=== PATIENT | male | born 1955 | race Caucasian/White ===

== ENCOUNTER 2016-06-27 08:39 | Inpatient (IN) | payer BC, MEDICARE ==
[~2016-06-27] VITALS: Ht 177.8 cm; Wt 87.4 kg
--- NOTE | ~2016-06-27 | HEMODYNAMI ---
PATIENT:QUINN ZHANG MEDICAL RECORD: [id number] : 51 [facility] [id number] [id number] ADMISSION DATE: 06/27/16 Generatedon:07/01/201610:29 Patient name: QUINN ZHANG Patient #: [id number] SSN: : 1955 Date of study: 07/01/2016 Page: Of Hemodynamic Procedure Report Patient Data Patient Demographics Procedure consent was obtained First Name: QUINN Gender: Male Last Name: VICENTE : 1955 Middle Initial: R Age: 60 year(s) Patient #: [id number] Race: Additional ID: [id number] Contact details [address]: [address] [place] [address] State: [place] City: [place] Zip code: [address] Past Medical History Allergies Allergen Reaction Date Comments Reported Statins 06/07/2016 Statins 07/01/2016 Admission Admission Data Admission Date: 06/27/2016 Admission Time: 11:15 Room #: [facility]7 Height (in.): 70 BSA: 2.06 (m2) Height (cm.): 177.8 BMI: 27.98 (kg/m2) Weight (lbs.): 195 Weight (kg.): 88.45 Procedure Procedure Types Cath Procedure Peripheral Cath Diagnostic Procedure Cath Peripheral Liver Hepatic Venagram Procedure Description Procedure Date Procedure Date: 07/01/2016 Procedure Start Time: 10:06 Procedure Staff Name Function Mainor Medina MD Performing Physician Israel Oliveros RT Scrub Ashley Singer RN Nurse Shiloh Turner RT First Calender Worker Shiloh Turner RT Monitor Procedure Data Cath Procedure Fluoroscopy Diagnostic fluoroscopy Total fluoroscopy Time: 4.8 time: 4.8 min min Diagnostic fluoroscopy Total fluoroscopy dose: dose: 354.4 mGy 354.4 mGy Contrast Material Contrast Material Type Amount (ml) Isovue 300 45 Diagnostic catheters Device Type Used For End Catheter Placement Merit Impress KA2 5Fr 65CM catheter Merit ULTRA BOLUS FLUSH 5Fr 65CM catheter Procedure Medications Medication Administration Route Dosage Oxygen NC 3 l/min Lidocaine 1% added to field 20 Heparin Flush Bag added to field 3 bags (1000units/500ml NS) Benadryl I.V. 50 mg Versed I.V. 1 mg Fentanyl I.V. 50 mcg Versed I.V. 0.5 mg Fentanyl I.V. 25 mcg Hemodynamics Rest BSA: 2.06 (m2) O2 Consumption: Estimated: 247.32 (ml/min) O2 Consumption indexed : Estimated:120.06 (ml/min/m) Heart Rate: 78 (bpm) Pressure Samples Time Site Value (mmHg) Purpose Heart Use Rate(bpm) 10:15 RA 8/7(5) Snapshot 80 10:15 RA 9/7(5) Snapshot 90 10:20 Portal 17/(15) Snapshot 80 Snapshots Pre Cath Intra NCS Post Cath Vital Signs Time Heart Resp SPO2 NIBP (mmHg) Rhythm Pain Sedation Rate (ipm) (%) Status Level (bpm) 9:38:50 75 29 96 117/75(100) NSR 0 (11) 10(A) , No pain 9:43:00 75 19 97 119/68(98) NSR 0 (11) 10(A) , No pain 9:47:10 76 19 97 129/73(104) NSR 0 (11) 10(A) , No pain 9:51:22 76 25 97 126/77(100) NSR 0 (11) 10(A) , No pain 9:55:32 75 17 99 133/77(110) NSR 0 (11) 10(A) , No pain 9:59:46 75 18 99 125/74(97) NSR 0 (11) 10(A) , No pain 10:03:58 75 18 99 113/69(92) NSR 0 (11) 10(A) , No pain 10:08:06 74 17 99 112/71(85) NSR 0 (11) 9(A) , No pain 10:12:11 80 20 100 107/73(91) NSR 0 (11) 9(A) , No pain 10:16:17 80 20 100 118/70(97) NSR 0 (11) 9(A) , No pain 10:20:29 80 19 100 111/67(88) NSR 0 (11) 9(A) , No pain 10:24:35 80 19 100 115/71(88) NSR 0 (11) 9(A) , No pain 10:28:45 80 12 100 118/69(88) NSR 0 (11) 9(A) , No pain Medications Time Medication Route Dose Verified Delivered Reason Notes Eff ectiveness by by 9:39:16 Oxygen NC 3 Ashley Ashley used for l/min Lucrecia Lucrecia civil rights attorney RN 9:39:34 Lidocaine 1% added 20ml Mainor Hayward for local to vial MD Adam Medina MD anesthetic field 9:39:50 Heparin Flush added 3 Ashley Ashley used for Bag to bags Lucrecia Lucrecia procedure (1000units/500ml field RN RN NS) 10:00:27 Benadryl I.V. 50 mg Ashley Ashley Per Lucrecia Lucrecia physician RN RN 10:06:30 Versed I.V. 1 mg Ashley Ashley for Lucrecia Lucrecia sedation RN RN 10:06:37 Fentanyl I.V. 50 Ashley Ashley for mcg Lucrecia Lucrecia sedation RN RN 10:14:21 Versed I.V. 0.5 Ashley Ashley for mg Lucrecia Lucrecia sedation RN RN 10:14:26 Fentanyl I.V. 25 Ashley Ashley for mcg Lucrecia Lucrecia sedation RN university services program associate Log Time Note 9:12:48 Patient Weight : 195 kg 9:12:52 Patient Height : 70 cm 9:17:38 Use device set IR Diagnostic 9:17:49 Sterile Angiographic Pack opened to sterile field. 9:17:52 Bag Decanter opened to sterile field. 9:17:53 Acist Manifold opened to sterile field. 9:17:54 Acist Hand Control opened to sterile field. 9:17:56 Acist Syringe opened to sterile field. 9:27:01 Time tracking: Regular hours 9:27:16 Plan of Care:Hemodynamics will remain stable., Cardiac rhythm will remain stable., Comfort level will be maintained., Respiratory function will remain adequate., Patient/ family verbilizes understanding of procedure., Procedure tolerated without complication., Recovers from procedure without complications.. 9:27:24 Patient received from Med II to IR Alert and oriented. Tansferred to table in Supine position. 9:27:26 Correct patient and procedure confirmed by team. 9::28 Signed procedure consent form obtained from patient. 9:27:32 - 9:27:39 H&P Date Dictated: 07/01/2016 Within 30 days and on chart.. 9::41 Pre-procedure instructions explained to patient. ::41 Pre-op teaching completed and patient verbalized understanding. 9:27:43 Family in waiting room. 9::45 Patient NPO since Midnight. 9:28:05 Patient allergic to Statins 9:28:12 Is the patient allergic to Iodine/contrast media? No. 9:28:14 Is patient on blood thinner?Yes 9:28:25 The patient was administered the following blood thiners within the las t 24 hours: ACCPlavix, Coumadin 9::41 Patient diabetic? Yes. 9:28:44 If diabetic: On Metformin? Yes 9:28:49 - 9:28:51 ----Pre-sedation anethsthesia assessment.---- 9::54 Previous problem with sedation/anesthesia? No ? :58 Snore? Yes 9:29:00 Sleep apnea? No 9:29:03 Deviated septum? No 9:29:05 Opens mouth fully? Yes 9:29:27 Airway obstruction? No ? 9:29:31 Airway obstruction? Yes chf 9:29:59 Dentures? Yes not in :30:31 IV patent on arrival in right hand with 0.9% NaCl at [facility]. 9:30:58 Right neck area was prepped with chlora-prep and draped in sterile fashion 9:31:00 Alarms reviewed by Gemma Claros 9:31:01 Sharps counted by scrub and verified by Benedict 9:31:01 - 9:33:17 Micropuncture VSI 4FR kit opened to sterile field. 9:33:39 Cook ADAMASON 145cm guide wire opened to sterile field. 9:37:43 - 9:37:47 ECG and BP/O2 sat monitors applied to patient. 9:37:49 Vital chart was started 9:37:52 Baseline sample Acquired. 9:37:54 Full Disclosure recording started 9:37:55 - 9:39:16 Oxygen 3 l/min NC was given by Ashley Singer RN; used for procedure; 9:39:34 Lidocaine 1% 20ml vial added to field was given by Mainor Medina MD; for local anesthetic; 9:39:50 Heparin Flush Bag (1000units/500ml NS) 3 bags added to field was given by Ashley Singer RN; used for procedure; 9:57:12 TUBING, CONTRAST INJCTN HI PRES opened to sterile field. 9:57:13 TUBING, CONTRAST INJCTN HI PRES opened to sterile field. 9:58:15 St Raimundo 5FR Sheath opened to sterile field. 10:00:27 Benadryl 50 mg I.V. was given by Ashley Singer RN; Per physician; 10:02:41 Physician arrived 10:06:00 --------ALL STOP TIME OUT------ 10:06:00 Final Timeout: patient, procedure, and site verified with staff and physician. All members of the team are in agreement. 10:06:09 Physical assessment completed. ASA score P 3 - A patient with severe systemic disease as per Mainor Medina MD. 10:06:16 Sedation plan: IV Moderate Sedation Versed, Fentanyl 10:06:24 Procedure started. 10:06:30 Versed 1 mg I.V. was given by Ashley Sniger RN; for sedation; 10:06:31 Local anesthetic to right IJ vein with Lidocaine 1% by Mainor Medina MD.INITIAL ACCESS ONLY 10:06:37 Fentanyl 50 mcg I.V. was given by Ashley Singer RN; for sedation; 10:08:40 A ConfortVisuel Impress KA2 5Fr 65CM catheter was advanced over the wire and used for . 10:10:10 Terumo TORQUE DEVICE PLASTIC .038 opened to sterile field. 10:11:25 Terumo .038 180cm ANGLED glide wire opened to sterile field. 10:14:21 Versed 0.5 mg I.V. was given by Ashley Singer RN; for sedation; 10:14:26 Fentanyl 25 mcg I.V. was given by Ashley Singer RN; for sedation; 10:14:56 Zero performed for pressure channel P1 10:15:06 Zero performed for pressure channel P1 10:15:17 Zero performed for pressure channel P1 10:17:22 A ConfortVisuel ULTRA BOLUS FLUSH 5Fr 65CM catheter was advanced over the wire and used for . 10:19:42 Zero performed for pressure channel P1 10:22:53 Venogram performed 10:23:02 Procedure ended.(Physican Out) 10:24:04 Fluoroscopy time 04.80 minutes. 10:24:57 Fluoroscopy dose: 354.4 mGy 10:24:57 Flurop Dose total: 354.4 10:25:52 Contrast amount:Isovue 300 45ml. 10:25:54 Sharps counted by scrub and verified by R.N. 10:25:58 Procedure and supply charges have been captured, reviewed, submitted an d are correct. 10:29:24 Vital chart was stopped Device Usage Item Name Manufacture Quantity Catalog Number Hospital Part Current Min imal Lot# / Charge Number Stock Stock Serial# Code Sterile [place] 1 [id number] 5 Angiographic Health Pack Bag Decanter Microtek 1 2001S [id number] 28930 924530 5 Medical Inc. Acist Acist 1 66092 353697 346335 289918 5 Manifold Medical Systems Inc Acist Hand Acist 1 73560 391541 556068 128188 5 Control Medical Systems Inc Acist Syringe Acist 1 95777 310840 534052 366665 20 Medical Systems Inc Micropuncture VSI VASCULAR 1 7266V 865586 250523 5 VSI 4FR kit SOLUTIONS Cook [facility] Medical 1 [id number] 604431 432991 5 145cm guide wire TUBING, Merit 2 [id number] 301557 599169 141973 5 CONTRAST Medical INJ[address] PRES [address] Raimundo 1 [id number] 982462 513867 5 Sheath Merit Impress Merit 1 [id number] 245233 610666 5 KA2 5Fr 65CM Medical catheter Terumo TORQUE [place] 1 TD01 729842 740874 608126 5 DEVICE Scientific PLASTIC .038 Terumo .038 Terumo 1 [id number] 482561 191533 5 180cm ANGLED glide wire Merit ULTRA Merit 1 [id number] 088670 248703 5 BOLUS FLUSH Medical 5Fr 65CM catheter Signature Audit [place] Stage Time Signature Unsigned Intra-Procedure 07/01/2016 Shiloh Turner 10:29:10 AM RT(R) Signatures Monitor : Shiloh Turner RT Signature : Date : Time : [facility] [address], [place] [address]
[~2016-06-27 08:39] MED LIST: CHRONULAC30 ML PO; COLACE100 MG PO; COREG6.25 MG PO; COUMADIN1 MG PO; GLUCOPHAGE500 MG PO; HUMALOG 30100 UNITS/ SC; IPRAT-ALBUT 0.5-3 ML UPD; ISORDIL40 MG PO; LANOXIN250 MCG PO; LANTUS INSULIN10 ML SC; LASIX40 MG PO; LEVAQUIN500 MG PO; LISINOPRIL10 MG PO; LYRICA75 MG PO; PLAVIX75 MG PO; PREDNISONE20 MG PO; PREVACID30 MG PO; XIFAXAN550 MG PO; ZOLOFT100 MG PO; ZYLOPRIM300 MG PO
[2016-06-27 09:21] LABS: BASOPHILS 0.9 % (0.0-2.0); EOSINOPHILS 3.3 % (0-7); HEMATOCRIT 46.8 % (42.0-54.0); HEMOGLOBIN 15.1 g/dL (13.5-17.5); IMMATURE GRANULOCYTES 0.1 % (0-5); LYMPHOCYTES 16.9 % (15-50); MCHC 32.3 g/dL (31.0-37.0); MCV 86.8 fL (80.0-100.0); MEAN PLATELET VOLUME 11.8 fL (7.4-10.4); MONOCYTES 6.4 % (2-11); NEUTROPHILS 72.4 % (40-80); RBC 5.39 10x6/uL (4.20-6.10); RDW 20.6 % (11.5-14.5)
[2016-06-27 09:22] LABS: PLATELET COUNT 105 10x3/uL (130-400)
[2016-06-27 09:37] LABS: ALBUMIN 3.2 g/dL (3.4-5.0); ALKALINE PHOSPHATASE 272 U/L (46-116); ALT (SGPT) 51 U/L (10-68); CALC OSMOLALITY 284 mosm/kg (275-300); CALCIUM 8.8 mg/dL (8.5-10.1); CHLORIDE - SERUM 108 mmol/L (98-107); CREATININE - SERUM 0.7 mg/dL (0.6-1.3); GLUCOSE 106 mg/dL (74-106); POTASSIUM - SERUM 3.7 mmol/L (3.5-5.1); PROTEIN - SERUM 6.4 g/dL (6.4-8.2); SODIUM 143 mmol/L (136-145); UREA NITROGEN 13 mg/dL (7-18); eGFR NON AFRICAN AMERICAN > 90 mL/min (90-120)
[2016-06-27 09:38] LABS: APTT 36.9 SECONDS (22.8-39.4); INR 2.06 (0.85-1.17); PROTIME 23.2 SECONDS (11.6-15.0)
[2016-06-27 09:53] LABS: CREATINE KINASE 50 UL (21-232); DIGOXIN 0.63 ng/mL (0.90-2.00); PRO BNP 1180 pg/mL (0-125)
[2016-06-27 10:00] LABS: TROPONIN-I 0.127 ng/mL (0.000-0.060)
--- NOTE | 2016-06-27 11:50 | NUR ---
ARRIVE TO ROOM VIA STRETCHER FROM ER ACCOMPANIED BY FAMILY AND HOSPITAL STAFF. ALERT AND ORIENTED X4. TRANSFER FROM STRETCHER TO BED MINIMAL ASSIST. DENIES SOB OR PAIN. RT HAND IV SL. SLOW TO RESPOND WHEN ANSWERING QUESTIONS. AMMONIA ELEVATED 138. LACTULOSE ORDERED. BED LOCKED AND LOW. CALL LIGHT IN REACH. CONTINUE PLAN OF CARE AND ADMISSION PROCESS.
[2016-06-27] MEDS ORDERED: NOVOLOG100 U/M1 (11:55)
[2016-06-27 13:36] VITALS: BP 129/72; BMI 28.1
[2016-06-27 13:44] LABS: CKMB 3.3 U/L (0.0-3.6); CREATINE KINASE 36 UL (21-232)
[2016-06-27 13:48] LABS: TROPONIN-I 0.135 ng/mL (0.000-0.060)
--- NOTE | 2016-06-27 14:33 | NUR ---
INITIATE DOBUTAMINE DRIP 5MCG/KG/MIN. SINUS RHYTHM 75bpm PVCs WITH PACED BEATS ON TELEMETRY. LETHARGIC. EASY TO AROUSE. FAMILY AT BEDSIDE. DENIES PAIN OR SOB. BED LOCKED AND LOW. CALL LIGHT IN REACH. TWO SIDERAILS UP. NO SCDs. TAKES COUMADIN.
--- NOTE | 2016-06-27 15:42 | NUR ---
ALERT AND ORIENTED X4. SITTING UP IN BED. NOSE BLEEDING. INITIATE HUMIDIFIED OXYGEN THERAPY. PRESSURE HELD AT BRIDGE OF NOSE FOR 2MINS. BLEEDING STOPPED. AFRAN NASAL SPRAY ORDERED. DENIES PAIN. DOBUTAMINE DRIP CONTINUED ORDERED. FAMILY AT BEDSIDE. SINUS RHYTHM 89bpm WITH PVCs ON TELEMETRY. CONTINUE PLAN OF CARE. BED LOCKED AND LOW. CALL LIGHT IN REACH. TWO SIDERAILS UP.
[2016-06-27 16:00] VITALS: BP 150/79
[2016-06-27 19:00] VITALS: BP 163/95
[2016-06-27 19:05] LABS: CKMB 2.5 U/L (0.0-3.6); CREATINE KINASE 34 UL (21-232)
[2016-06-27 19:06] LABS: TROPONIN-I 0.113 ng/mL (0.000-0.060)
--- NOTE | 2016-06-27 19:32 | NUR ---
RESUMED CARE OF PT, SLEEPING, IV-R.HAND*DOBUTAMINE-13.4,WKTMJBKH-22-YK-PACEMAKER, CALL LIGHT IN REACH, BED IS LOW, SRX2
--- NOTE | 2016-06-27 23:50 | NUR ---
EKG COMPLETE, PT DENIES ANY NEEDS, CALL LIGHT IN REACH
[2016-06-28] VITALS: BP 159/85
[2016-06-28 00:51] LABS: CKMB 2.1 U/L (0.0-3.6); CREATINE KINASE 31 UL (21-232)
--- NOTE | 2016-06-28 02:37 | NUR ---
LYING IN BED WITH EYES CLOSED, CALL LIGHT IN REACH. WILL CONTINUE WITH PLAN OF CARE.
[2016-06-28 04:00] VITALS: BP 157/80
[2016-06-28 06:06] LABS: BASOPHILS 0.6 % (0.0-2.0); EOSINOPHILS 3.3 % (0-7); HEMATOCRIT 43.8 % (42.0-54.0); IMMATURE GRANULOCYTES 0.2 % (0-5); LYMPHOCYTES 22.5 % (15-50); MCH 27.5 pg (26.0-34.0); MCV 85.9 fL (80.0-100.0); MEAN PLATELET VOLUME 10.9 fL (7.4-10.4); NEUTROPHILS 66.4 % (40-80); RDW 20.8 % (11.5-14.5)
[2016-06-28 06:07] LABS: INR 2.07 (0.85-1.17); PROTIME 23.4 SECONDS (11.6-15.0)
[2016-06-28 06:19] LABS: ALBUMIN 2.8 g/dL (3.4-5.0); ALKALINE PHOSPHATASE 237 U/L (46-116); ALT (SGPT) 46 U/L (10-68); BILIRUBIN - TOTAL 1.47 mg/dL (0.2-1.3); CALC OSMOLALITY 292 mosm/kg (275-300); CALCIUM 9.1 mg/dL (8.5-10.1); CARBON DIOXIDE 28.1 mmol/L (21.0-32.0); CHLORIDE - SERUM 108 mmol/L (98-107); GLUCOSE 150 mg/dL (74-106); PLATELET COUNT 81 10x3/uL (130-400); POTASSIUM - SERUM 3.3 mmol/L (3.5-5.1); PROTEIN - SERUM 6.1 g/dL (6.4-8.2); SODIUM 145 mmol/L (136-145); UREA NITROGEN 14 mg/dL (7-18); WBC 5.1 10x3/uL (4.8-10.8)
[2016-06-28 06:25] LABS: CREATININE - SERUM 0.9 mg/dL (0.6-1.3); eGFR NON AFRICAN AMERICAN > 90 mL/min (90-120)
[2016-06-28 07:21] LABS: PLATELET ESTIMATE DECREASED
[2016-06-28 08:00] VITALS: BP 129/67
[2016-06-28 09:05] VITALS: BP 162/76
--- NOTE | 2016-06-28 10:47 | NUR ---
SLEEPING COMFORTABLY IN BED. DAUGHTER AT BEDSIDE. DAUGHTER BROUGHT COPY OF LIVING WILL TO PUT ON CHART. SINUS RHYTHM 76bpm WITH PVCs ON TELEMETRY. NPO FOR TIP THIS AFTERNOON. CONITUE PLAN OF CARE. BED LOCKED AND LOW. CALL LIGHT IN REACH. TWO SIDERAILS UP. TAKES COUMADIN.
[2016-06-28 11:59] VITALS: BP 123/62; BP 96/62
[2016-06-28 13:38] VITALS: Ht 177.8 cm; Wt 87.4 kg
[2016-06-28 15:46] VITALS: BP 125/68
--- NOTE | 2016-06-28 19:21 | NUR ---
RESUMED CARE OF PT, IV-R.QUGA-BMOURBWUC-35.4, TELEMTRY-78, DENIES ANY NEEDS, CALL LIGHT IN REACH, WILL CONTINUE TO MONITOR
[2016-06-29] VITALS: BP 129/58
--- NOTE | 2016-06-29 02:21 | NUR ---
PT LAYING IN BED NO DISTRESS OBSERVED CALL LIGHT IN REACH SRX2 TELEMETRY READING 87 SR WITH PVC RESPERATIONS EVEN AND UNLABORED WILL MONITOR
[2016-06-29 04:00] VITALS: BP 176/71
--- NOTE | 2016-06-29 05:43 | NUR ---
BLOODSUGAR 78, NO COVERAGE NEEDED, DID GIVE ORANGE JUICE
[2016-06-29 06:31] LABS: BASOPHILS 0.6 % (0.0-2.0); HEMATOCRIT 42.5 % (42.0-54.0); HEMOGLOBIN 13.7 g/dL (13.5-17.5); LYMPHOCYTES 21.1 % (15-50); MCH 27.7 pg (26.0-34.0); MCHC 32.2 g/dL (31.0-37.0); MEAN PLATELET VOLUME 10.4 fL (7.4-10.4); MONOCYTES 8.5 % (2-11); NEUTROPHILS 65.8 % (40-80); PLATELET COUNT 82 10x3/uL (130-400); RBC 4.94 10x6/uL (4.20-6.10); RDW 20.5 % (11.5-14.5); WBC 4.7 10x3/uL (4.8-10.8)
[2016-06-29 06:52] LABS: INR 2.3 (0.85-1.17); PROTIME 25.4 SECONDS (11.6-15.0)
[2016-06-29 07:00] LABS: ALBUMIN 2.8 g/dL (3.4-5.0); ALKALINE PHOSPHATASE 208 U/L (46-116); ALT (SGPT) 46 U/L (10-68); CALC OSMOLALITY 283 mosm/kg (275-300); CALCIUM 8.6 mg/dL (8.5-10.1); CARBON DIOXIDE 26.6 mmol/L (21.0-32.0); CHLORIDE - SERUM 107 mmol/L (98-107); CREATININE - SERUM 0.9 mg/dL (0.6-1.3); POTASSIUM - SERUM 3.4 mmol/L (3.5-5.1); PROTEIN - SERUM 6.1 g/dL (6.4-8.2); SODIUM 142 mmol/L (136-145); UREA NITROGEN 14 mg/dL (7-18); eGFR NON AFRICAN AMERICAN > 90 mL/min (90-120)
[2016-06-29 07:01] LABS: GLUCOSE 94 mg/dL (74-106)
[2016-06-29 08:00] VITALS: BP 145/71
--- NOTE | 2016-06-29 10:43 | NUR ---
GONE FOR CT BY W/C.
[2016-06-29 12:00] VITALS: BP 133/71
[2016-06-29 16:00] VITALS: BP 154/84
--- NOTE | 2016-06-29 19:03 | NUR ---
SITTING UP IN BED, AAOX3, SKIN WARM AND DRY, RESP UNLABORED, IV PATENT TO RIGHT HAND, MOOD PLEASANT, NO DISTRESS NOTED
[2016-06-30] VITALS: BP 160/70
[2016-06-30 04:00] VITALS: BP 152/68
--- NOTE | 2016-06-30 06:08 | NUR ---
RESTING QUIETLY IN BED, NO DISTRESS NOTED
[2016-06-30 06:52] LABS: INR 2.42 (0.85-1.17); PROTIME 26.4 SECONDS (11.6-15.0)
[2016-06-30 07:10] LABS: ALBUMIN 2.8 g/dL (3.4-5.0); ALKALINE PHOSPHATASE 260 U/L (46-116); ALT (SGPT) 48 U/L (10-68); CALC OSMOLALITY 289 mosm/kg (275-300); CALCIUM 8.6 mg/dL (8.5-10.1); CHLORIDE - SERUM 105 mmol/L (98-107); CREATININE - SERUM 0.9 mg/dL (0.6-1.3); POTASSIUM - SERUM 3.3 mmol/L (3.5-5.1); PROTEIN - SERUM 6.2 g/dL (6.4-8.2); SODIUM 143 mmol/L (136-145); UREA NITROGEN 16 mg/dL (7-18); eGFR NON AFRICAN AMERICAN > 90 mL/min (90-120)
[2016-06-30 07:11] LABS: GLUCOSE 179 mg/dL (74-106)
[2016-06-30 07:15] LABS: BASOPHILS 0.6 % (0.0-2.0); HEMATOCRIT 42.3 % (42.0-54.0); HEMOGLOBIN 13.6 g/dL (13.5-17.5); IMMATURE GRANULOCYTES 0.2 % (0-5); MCH 27.8 pg (26.0-34.0); MCHC 32.2 g/dL (31.0-37.0); MCV 86.3 fL (80.0-100.0); MEAN PLATELET VOLUME 11.1 fL (7.4-10.4); MONOCYTES 9.1 % (2-11); NEUTROPHILS 68.1 % (40-80); PLATELET COUNT 96 10x3/uL (130-400); RDW 20.5 % (11.5-14.5); WBC 4.7 10x3/uL (4.8-10.8)
[2016-06-30 08:02] VITALS: BP 140/67
--- NOTE | 2016-06-30 09:44 | NUR ---
TELEMETRY SR. IV PATENT. CALL LIGHT IN REACH. WILL CONT. PLAN OF CARE.
[2016-06-30 11:42] VITALS: BP 137/73
[2016-06-30 16:00] VITALS: BP 137/63
--- NOTE | 2016-06-30 19:03 | NUR ---
SITTING UP IN BED, AAOX3, SKIN WARM AND DRY, RESP UNLABORED, IV PATENT TO RIGHT HAND, MOOD PLEASANT, NO DISTRESS NOTED
[2016-06-30 20:00] VITALS: BP 137/76
[2016-07-01] VITALS (13 sets, daily range): BP systolic 114–147; BP diastolic 54–82
--- NOTE | 2016-07-01 04:28 | NUR ---
SKI LIFT MECHANIC AT BEDSIDE TO OBTAIN VITALS, CALL LIGHT IN REACH. WILL CONTINUE WITH PLAN OF CARE.
[2016-07-01 06:03] LABS: BASOPHILS 0.7 % (0.0-2.0); EOSINOPHILS 5.2 % (0-7); HEMATOCRIT 47.6 % (42.0-54.0); HEMOGLOBIN 15.3 g/dL (13.5-17.5); IMMATURE GRANULOCYTES 0.2 % (0-5); LYMPHOCYTES 20.6 % (15-50); MCH 27.7 pg (26.0-34.0); MCHC 32.1 g/dL (31.0-37.0); MCV 86.2 fL (80.0-100.0); MEAN PLATELET VOLUME 10.7 fL (7.4-10.4); MONOCYTES 7.9 % (2-11); NEUTROPHILS 65.4 % (40-80); PLATELET COUNT 111 10x3/uL (130-400); RBC 5.52 10x6/uL (4.20-6.10); RDW 20.4 % (11.5-14.5)
[2016-07-01 06:20] LABS: INR 2.1 (0.85-1.17); PROTIME 23.6 SECONDS (11.6-15.0)
[2016-07-01 06:41] LABS: ALKALINE PHOSPHATASE 296 U/L (46-116); ALT (SGPT) 51 U/L (10-68); BILIRUBIN - TOTAL 1.17 mg/dL (0.2-1.3); CALCIUM 9.1 mg/dL (8.5-10.1); CARBON DIOXIDE 25.8 mmol/L (21.0-32.0); CHLORIDE - SERUM 107 mmol/L (98-107); CREATININE - SERUM 0.9 mg/dL (0.6-1.3); POTASSIUM - SERUM 3.7 mmol/L (3.5-5.1); PROTEIN - SERUM 6.8 g/dL (6.4-8.2); SODIUM 143 mmol/L (136-145); UREA NITROGEN 12 mg/dL (7-18); eGFR NON AFRICAN AMERICAN > 90 mL/min (90-120)
[2016-07-01 06:42] LABS: CALC OSMOLALITY 284 mosm/kg (275-300); GLUCOSE 107 mg/dL (74-106)
--- NOTE | 2016-07-01 07:10 | NUR ---
PT SITTING UP IN BED WITH TWO FAMILY MEMBERS AT BEDSIDE. DENIES NEEDS. WILL COTNINUE TO MONITOR.
[2016-07-01 07:25] LABS: MAGNESIUM - SERUM 1.8 mg/dL (1.8-2.4); PHOSPHOROUS 3.7 mg/dL (2.5-4.9)
--- NOTE | 2016-07-01 09:11 | NUR ---
PREOPED PT FOR VENOGRAM EKG DONE AND ON CHART. CONSENTS SIGNED ON CHART. JACQUELIN FROM IR HERE AND ASKED HIM IF OK TO GIVE BLOOD THINNERS. HE SAID OK FOR XIFAXIN BUT HOLD PLAVIX UNTIL AFTER PROCEDURE. HOLDING UNTIL THEN.
--- NOTE | 2016-07-01 10:26 | NUR ---
PT STILL IN PROCEDURE.
--- NOTE | 2016-07-01 11:01 | NUR ---
Nutrition follow-up: NPO at this time for procedure PO intake of regular diet has been 100% of meals labs reviewed +BM Wt: 194# RDN following.
--- NOTE | 2016-07-01 11:08 | NUR ---
PT BACK FROM PROCEDURE. PT ALERT STILL LETHARGIC VS WNL. GIVEN MEDS. BS WNL. R NECK DRESSING SATURATED. CHANGED DRESSING AND DATED. FAMILY AT [facility].
--- NOTE | 2016-07-01 11:55 | NUR ---
Patient Name: QUINN ZHANG Admission Status: ER Accout number: [id number] Admission Date: 06-27-2016 : 1955 Admission Diagnosis:UNSPECIFIED CIRRHOSIS OF LIVER Attending: IMAN Current LOS: 4 Anticipated DC Date: Planned Disposition: Home Primary Insurance: [employer] [facility] Discharge Planning Comments: CM met with patient and patient's spouse at bedside to discuss discharge planning/needs. The patient did not have HH services or DME supplies at time of this admission. Patient's spouse states he would benefit from a walker-patient is agreeable. The patient's spouse stated she would like HH services initially at discharge but patient denied HH. The patient's spouse stated the patient was admitted on 06/04/16 for an MN and was discharged home 3 weeks ago. She states the patient will not use his nebulizer at home as he states "It makes him feel sick". Spouse states she sets up the patient's medications but otherwise he is independent of ADL's. Both patient and spouse agree their home environment is safe to return to. The patient's spouse "Bri Zhang" ([phone]) will be his transportation home at discharge and his primary caregiver once discharged. CM will continue to follow and assist with discharge planning/needs. Chucking Machine Operator: Juliette Thakur RN/CM PCP Dr Murphy 0 * Pharmacy [facility] 0 * Preadmission Environment Home with Family 0 * ADLs Partial Dependent 0 * Partial ADLs (Assistance needed) Medication Management 0 * Equipment None 0 Grand Total: 0
[2016-07-01] MEDS ORDERED: CHRONULAC30 ML PO (12:08)
[2016-07-01] MEDS ORDERED: K-TAB10 MEQ PO (12:09)
[2016-07-01] MEDS ORDERED: AFRIN NASAL SPR15 ML NASAL (12:09)
[2016-07-01] MEDS ORDERED: NOVOLOG100 U/M1 SC (12:15)
[2016-07-01] MEDS ORDERED: ALDACTONE25 MG PO (12:15)
--- NOTE | 2016-07-01 12:44 | NUR ---
CHANGED PT DRESSING ON R NECK AGAIN. PT STILL BLEEDING, NOT SLOWING DOWN. REDRESSED. JACQUELIN FROM IR HERE HES NOW HOLDIND PRESSURE.
--- NOTE | 2016-07-01 13:48 | NUR ---
JACQUELIN HELD PRESSURE ON PT WOUND FOR ABOUT AN HOUR AND PT STILL STEADILY BLEEDING. CHANGED DRESSING AGAIN. HE TALKED TO THE DR AND HE SAID TO KEEP HOB ELEVATED MUCH POSSIBLE. PT SLEEPING NOW. WILL CONTINUE TO MONITOR.
--- NOTE | 2016-07-01 14:10 | NUR ---
PT HAS ALREADY SEEPED THROUGH DRESSING AGAIN. CALLED JACQUELIN IN IR. HE IS HERE AGAIN AND HOLDING MORE PRESSURE. IS IN A CASE AND WILL BE HERE MAYELIN.
--- NOTE | 2016-07-01 14:56 | NUR ---
Patient Name: QUINN ZHANG Encounter No: [id number] : 1955 Primary Insurance: [employer] [place] [facility] Anticipated DC Date: Planned Disposition: Home WITH HOME HEALTH External Planned Provider: : DCP follow-up note: CECILIO KELLY RECEIVED ORDERS FOR HOME HEALTH AND WALKER. AKBAR MET WITH PT IN ROOM, DISCUSSED DISCHARGE NEEDS. PT CHOSE [facility] FOR HOME HEALTH AND HAD NO PREFERENCE ON DME PROVIDER AND WOULD LIKE IN NETWORK PROVIDER FOR INSURANCE. CECILIO KELLY SPOKE TO ALL AT [phone], PROVIDED REFERRAL INFORMATION FOR HOME HEALTH ARRANGEMENT TO BEGIN TOMORROW. CM FAXED REFERRAL AND DISCHARGE INFORMATION TO [facility] AT [phone]. CM CALLED [facility], , SPOKE TO CARRIE WHO REPORTS BEING IN NETWORK FOR PT'S INSURANCE. AKBAR FAXED ORDER AND FACE SHEET TO [facility], , FOR HOSPITAL DELIVERY OF WALKER TO PT'S ROOM FOR DISCHARGE HOME. PT AND SPOUSE NOTIFIED. NO FURHTER DISCHARGE NEEDS. George Patrick, CASE MANAGEMENT
--- NOTE | 2016-07-01 17:04 | NUR ---
PT HAS NO S/S BLEEDING. SITTING UP IN BED WAITING ON DINNER TRAY. WENT IN ROOM TO GET DC PAPERWORK SIGNED. PT AND PT FAMILY STATING THAT JACQUELIN AND DR CHURCH TOLD THEM THAT PT COULD STAY UNTIL TOMORROW. NO ONE INFORMED ME OF THIS... PAGED DORITA THORNTON POPCORN CANDY MAKER TO MAKE SURE THAT THIS IS OK TO HOLD THE DC UNTIL THE AM TO MAKE SURE THE BLEEDING STOPS.
--- NOTE | 2016-07-01 17:07 | NUR ---
DORITA THORNTON CALLED AND SHE SAID TO HOLD DISCHARGE ON PT.
--- NOTE | 2016-07-01 17:45 | NUR ---
PT BLEEDING AGAIN. HOLDING PRESSURE AGAIN
--- NOTE | 2016-07-01 17:59 | NUR ---
PRESSURE DRESSING APPLIED AGAIN. PT NOT BLEEDING THROUGH DRESSING AT THIS TIME. FAMILY AT BEDSIDE. WILL CONTINUE TO MONITOR.
--- NOTE | 2016-07-01 18:18 | NUR ---
PT BLEEDING AGAIN. CHANGED PRESSURE DRESSING AGAIN. APPLYING DIRECT PRESSURE. CALLED DORITA THORNTON SHE SAID CALL IR. DR HAZEL NEEDLE POLISHER. HE HAS BEEN PAGED. PT IS NOT CLOTTING. PROCEDURE WAS FINISHED AT 1100 AND HE IS STILL BLEEDING.
--- NOTE | 2016-07-01 19:19 | NUR ---
GONE TO IR BY BED FOR SUTURE.
--- NOTE | 2016-07-01 19:34 | NUR ---
REPORT RECIEVED FROM DR HAZEL, 1 STITCH PLACED TO RIGHT NECK INCISION. ORDERS TO HOLD PLAVIX TOMORROW PLACED IN [facility].
--- NOTE | 2016-07-01 22:07 | NUR ---
HS MEDS GIVEN. BS 129, NO COVERAGE PER S/S. PT DENIES PAIN OR NEEDS.
--- NOTE | 2016-07-01 22:39 | NUR ---
UP TO BR, GAIT STEADY.
[2016-07-02] VITALS: BP 139/74
--- NOTE | 2016-07-02 03:15 | NUR ---
RESTING WITH EYES CLOSED, RESPERATIONS EVEN, NO S/S DISTRESS NOTED.
[2016-07-02 04:00] VITALS: BP 140/75
--- NOTE | 2016-07-02 04:04 | NUR ---
MID LEVEL GAME DESIGNER AT BEDSIDE TO OBTAIN VITALS, CALL LIGHT IN REACH. WILL CONTINUE TO MONITOR.
[2016-07-02 06:25] LABS: BASOPHILS 0.4 % (0.0-2.0); HEMATOCRIT 45.3 % (42.0-54.0); HEMOGLOBIN 14.6 g/dL (13.5-17.5); IMMATURE GRANULOCYTES 0.3 % (0-5); MCH 28.1 pg (26.0-34.0); MCHC 32.2 g/dL (31.0-37.0); MCV 87.3 fL (80.0-100.0); MEAN PLATELET VOLUME 10.7 fL (7.4-10.4); MONOCYTES 8.3 % (2-11); RBC 5.19 10x6/uL (4.20-6.10); RDW 20.2 % (11.5-14.5); WBC 6.8 10x3/uL (4.8-10.8)
[2016-07-02 06:26] LABS: PLATELET COUNT 141 10x3/uL (130-400)
[2016-07-02 06:33] LABS: INR 1.69 (0.85-1.17); PROTIME 19.8 SECONDS (11.6-15.0)
[2016-07-02 06:53] LABS: ALKALINE PHOSPHATASE 266 U/L (46-116); ALT (SGPT) 64 U/L (10-68); CALC OSMOLALITY 283 mosm/kg (275-300); CALCIUM 9.1 mg/dL (8.5-10.1); CARBON DIOXIDE 28.3 mmol/L (21.0-32.0); CHLORIDE - SERUM 105 mmol/L (98-107); GLUCOSE 127 mg/dL (74-106); MAGNESIUM - SERUM 1.8 mg/dL (1.8-2.4); PHOSPHOROUS 3.4 mg/dL (2.5-4.9); POTASSIUM - SERUM 3.8 mmol/L (3.5-5.1); PROTEIN - SERUM 6.7 g/dL (6.4-8.2); SODIUM 141 mmol/L (136-145); UREA NITROGEN 14 mg/dL (7-18); eGFR NON AFRICAN AMERICAN 80 mL/min (90-120)
[2016-07-02 07:51] VITALS: BP 131/77
--- NOTE | 2016-07-02 10:12 | NUR ---
DR CHURCH SAID IT WAS OK TO HAVE PT GO HOME. IR SAID OK WELL. NO S/S BLEEDING FROM SITE. WENT OVER DC PAPERWORK WITH PT PT VERBALIZES UNDERSTANDING. DC PIV WITH CATHETER TIP INTACT. DC TELE. PT WAS WHEELED OUT BY VOLUNTEER.
--- NOTE | 2016-07-02 13:11 | NUR ---
Patient Name: QUINN ZHANG Encounter No: [id number] : 1955 Primary Insurance: [employer] [place] Anticipated DC Date: 07-01-2016 Planned Disposition: Home with Home Health External Planned Provider: [facility] DCP follow-up note: CM CALLED AND NOTIFIED POWER AT [facility] [phone],OF PT'S DISCHARGE HOME, PT ON C SCHEDULE FOR TOMORROW. CM FAXED DISCHARGE INFORMATION TO [facility] AT [phone]. George Patrick, CASE MANAGEMENT
== END 2016-07-02 10:16 | disposition home health service (06) | DRG 432 ==
LOC: D.ER 08:39 → D.M2 11:15
PROVIDERS: Emergency Medicine; General Practice; ADMIT Family Medicine
PROC: B51 Imaging, Veins, Fluoroscopy (ICD-10-PCS; principal; 2016-07-01 09:00)
DX: K74.60 Unspecified cirrhosis of liver (principal); I50.23 Acute on chronic systolic (congestive) heart failure; F17.203 Nicotine dependence unspecified, with withdrawal; I25.5 Ischemic cardiomyopathy; I25.10 Atherosclerotic heart disease of native coronary artery without angina pectoris; I11.0 Hypertensive heart disease with heart failure; J44.9 Chronic obstructive pulmonary disease, unspecified; E11.9 Type 2 diabetes mellitus without complications; K72.90 Hepatic failure, unspecified without coma

== ENCOUNTER 2016-08-23 10:44 | Inpatient (IN) | payer BC, MEDICARE ==
[~2016-08-23] VITALS: Ht 177.8 cm; Wt 93.2 kg
--- NOTE | ~2016-08-23 | HEMODYNAMI ---
PATIENT:QUINN ZHANG MEDICAL RECORD: [id number] : 51 [address] [id number] ADMISSION DATE: 08/23/16 Generatedon:08/24/201613:20 Patient name: QUINN ZHANG Patient #: [id number] SSN: : 1955 Date of study: 08/24/2016 Page: Of Hemodynamic Procedure Report Patient Data Patient Demographics Procedure consent was obtained First Name: QUINN Gender: Male Last Name: VICENTE : 1955 Middle Initial: R Age: 60 year(s) Patient #: [id number] Race: Additional ID: [id number] Contact details [address]: [address] [place] [address] State: [place] City: [place] Zip code: [address] Past Medical History Allergies Allergen Reaction Date Comments Reported Statins 06/07/2016 Statins 07/01/2016 Admission Admission Data Admission Date: 08/23/2016 Admission Time: 13:51 Room #: 2122 Lab Results Lab Result Date: 08/24/2016 Lab Result Time: 0:00 Biochemistry Name Units Result Min Max BUN mg/dl 18 --(---*)-- 7 18 Creatinine mg/dl 0.9 --(-*--)-- 0.6 1.3 CBC Name Units Result Min Max Hemoglobin g/dl 15.4 --(-*--)-- 13.5 17.5 Procedure Procedure Types Cath Procedure Diagnostic Procedure LHC Coronaries only PCI Procedure Coronary Stent Initial Miscellaneous Procedures Moderate Sedation up to 30 minutes Procedure Description Procedure Date Procedure Date: 08/24/2016 Procedure Start Time: 12:45 Procedure End Time: 13:19 Procedure Staff Name Function Kin Oshea MD Performing Physician Maris Matos RN Nurse Derek Gonzalez RT Monitor Ric Rinaldi RT Scrub Procedure Data Cath Procedure Fluoroscopy Diagnostic fluoroscopy Total fluoroscopy Time: 5.5 time: 5.5 min min Diagnostic fluoroscopy Total fluoroscopy dose: dose: 653.67 mGy 653.67 mGy Contrast Material Contrast Material Type Amount (ml) Isovue 300 161 Entry Location Entry Primary Successful Side Size Upsize Upsize Entry Closure Succes sful Closure Location (Fr) 1 (Fr) 2 (Fr) Remarks Device Remarks Femoral Right 5 Fr 6 Fr Exoseal artery Short Estimated blood loss: 10 ml Diagnostic catheters Device Type Used For End Catheter Placement Diagnostic Infinity 5Fr Coronary JL 4.0 catheter Angiography Diagnostic Infinity 5Fr Coronary 3DRC catheter Angiography Diagnostic Infinity 5Fr Coronary AR 1 MOD catheter Angiography Procedure Complications No complications Procedure Medications Medication Administration Route Dosage Oxygen NC 2 l/min Heparin Flush Bag added to field 2 bags (1000units/500ml NS) Lidocaine 2% added to field 20 Benadryl I.V. 50 mg Versed I.V. 1 mg Fentanyl I.V. 50 mcg Versed I.V. 0.5 mg Fentanyl I.V. 25 mcg Versed I.V. 0.5 mg Fentanyl I.V. 25 mcg Heparin Bolus I.V. 9000 units Nitroglycerin IC/IA I.C. 100 mcg Plavix P.O. 600 mg Hemodynamics Rest HGB: 15.4 (g/dl) Heart Rate: 73 (bpm) Pressure Samples Time Site Value (mmHg) Purpose Heart Use Rate(bpm) 12:50 AO 137/70(96) Snapshot 74 12:58 AO 141/68(95) Snapshot 75 Snapshots Pre Cath Intra NCS Post Cath Vital Signs Time Heart Resp SPO2 NIBP (mmHg) Rhythm Pain Sedation Rate (ipm) (%) Status Level (bpm) 12:30:57 72 29 96 139/76(111) NSR 0 (11) 10(A) , No pain 12:35:24 71 18 98 140/76(105) NSR 0 (11) 10(A) , No pain 12:39:50 73 15 97 138/75(113) NSR 0 (11) 10(A) , No pain 12:44:10 73 15 96 135/78(104) NSR 0 (11) 9(A) , No pain 12:48:32 74 15 97 139/76(108) NSR 0 (11) 9(A) , No pain 12:52:54 75 15 96 139/79(108) NSR 0 (11) 9(A) , No pain 12:57:18 75 15 97 137/82(111) NSR 0 (11) 9(A) , No pain 13:01:43 75 15 98 126/73(99) NSR 0 (11) 9(A) , No pain 13:06:03 74 15 97 132/74(99) NSR 0 (11) 9(A) , No pain 13:10:23 74 15 97 138/78(109) NSR 0 (11) 9(A) , No pain 13:12:36 74 15 97 135/79(106) NSR 0 (11) 9(A) , No pain 13:16:56 75 15 96 134/81(104) NSR 0 (11) 10(A) , No pain Medications Time Medication Route Dose Verified Delivered Reason Notes Effectiveness by by 12:29:48 Oxygen NC 2 Kin Maris Per physician l/min Ozzy Matos RN 12:29:59 Heparin Flush added 2 Kin Kin used for Bag to bags Ozzy Oshea MD procedure (1000units/500ml field NS) 12:30:07 Lidocaine 2% added 20ml Kin Kin used for to vial Ozzy Oshea MD procedure field 12:30:16 Benadryl I.V. 50 mg Kin Maris Per physician Ozzy Matos RN 12:38:36 Versed I.V. 1 mg Kin Maris for sedation Ozzy Matos RN 12:38:55 Fentanyl I.V. 50 Kin Maris for sedation mcg Ozzy Matos RN 12:41:23 Versed I.V. 0.5 Kin Maris for sedation mg Ozzy Matos RN 12:41:30 Fentanyl I.V. 25 Kin Maris for sedation mcg Ozzy Matos RN 12:43:08 Versed I.V. 0.5 Kin Maris for sedation mg Ozzy Matos RN 12:43:19 Fentanyl I.V. 25 Kin Maris for sedation mcg Ozzy Matos RN 12:59:06 Heparin Bolus I.V. 9000 Kin Maris for dose units Ozzy Matos RN anticoagulation verified with dr oshea 12:59:38 Nitroglycerin I.C. 100 Kin Kin for IC/IA mcg Ozzy Oshea MD vasodilation 13:14:41 Plavix P.O. 600 Kin Sanderson for mg Ozzy Oshea MD antiplatelet therapy Procedure Log Time Note 12:00:09 Ric Rinaldi RT(R) sent for patient. Start room use. 12:11:07 Diagnostic Cath status Elective 12:11:17 Time tracking: Regular hours 12:11:20 Plan of Care:Hemodynamics will remain stable., Cardiac rhythm will remain stable., Comfort level will be maintained., Respiratory function will remain adequate., Patient/ family verbilizes understanding of procedure., Procedure tolerated without complication., Recovers from procedure without complications.. 12:13:45 H&P Date Dictated: 08/16/2016 Within 30 days and on chart., H&P Addendum completed by physician on day of procedure. (MUST COMPLETE FOR ALL OUTPATIENTS). 12:13:46 Pre-procedure instructions explained to patient. 12:13:46 Pre-op teaching completed and patient verbalized understanding. 12:13:50 Family in waiting room. 12:13:51 Patient NPO since Midnight. 12:15:10 Lab Result : BUN 18 mg/dl 12:15:10 Lab Result : Creatinine 0.9 mg/dl 12:15:10 Lab Result : Hemoglobin 15.4 g/dl 12:20:47 Patient received from PCU to CCL 3 Alert and oriented. Tansferred to table in Supine position. 12:20:48 Warm blankets applied, and bal hugger turned on for patient comfort. 12:20:49 Correct patient and procedure confirmed by team. 12:20:50 Signed procedure consent form obtained from patient. 12:20:51 ECG and BP/O2 sat monitors applied to patient. 12:29:37 Vital chart was started 12:29:48 Oxygen 2 l/min NC was administered by Maris Matos RN; Per physician; 12:29:59 Heparin Flush Bag (1000units/500ml NS) 2 bags added to field was administered by Kin Oshea MD; used for procedure; 12:30:07 Lidocaine 2% 20ml vial added to field was administered by Kin Oshea MD; used for procedure; 12:30:16 Benadryl 50 mg I.V. was administered by Maris Matos RN; Per physician; 12:31:29 Baseline sample Acquired. 12:31:33 Rhythm: sinus rhythm 12:31:35 Full Disclosure recording started 12:31:39 Is the patient allergic to Iodine/contrast media? No. 12:31:44 Is patient on blood thinner?No 12:31:47 ACC The patient was administered the following blood thiners within the last 24 hours: None 12:31:50 Patient diabetic? Yes. 12:32:37 If diabetic: On Metformin? Yes 12:32:49 If on Metformin: Last Dose? 08/21/2016 12:32:52 Previous problem with sedation/anesthesia? No ? 12:32:56 Snore? Yes 12:32:57 Sleep apnea? No 12:32:58 Deviated septum? No 12:32:59 Opens mouth fully? Yes 12:33:00 Sticks out tongue? Yes 12:33:02 Airway obstruction? Yes ? 12:33:10 Dentures? Yes IN TIGHT 12:33:16 Pre procedure: right dorsailis pedis pulse 1+ Palpable, but thready & weak; easily obliterated 12:33:18 Patient pain scale 0/10 ?. 12:33:24 IV patent on arrival in right hand with 0.9% NaCl at [facility]. 12:33:27 Lab results completed and on chart. 12:33:31 Right groin area was prepped with chlora-prep and draped in sterile fashion 12:33:32 Alarms reviewed by R. N. 12:33:33 Sharps counted by scrub and verified by R.N. 12:33:46 Tegaderm 4 x 4 opened to sterile field. 12:33:47 Acist Hand Control opened to sterile field. 12:33:51 Acist Manifold opened to sterile field. 12:33:52 Acist Syringe opened to sterile field. 12:33:52 Bag Decanter opened to sterile field. 12:33:53 Medline Cath Pack opened to sterile field. 12:33:53 Terumo 5Fr Hooper Sheath opened to sterile field. 12:33:54 St Raimundo 260cm J .035 wire opened to sterile field. 12:37:10 --------ALL STOP TIME OUT------ 12:37:10 Final Timeout: patient, procedure, and site verified with staff and physician. All members of the team are in agreement. 12:37:15 Right groin site verified by team. 12:37:19 Physical assessment completed. ASA score P 2 - A patient with mild systemic disease as per Kin Oshea MD. 12:37:22 Sedation plan: IV Moderate Sedation Versed, Fentanyl 12:38:36 Versed 1 mg I.V. was administered by Maris Matos RN; for sedation; 12:38:55 Fentanyl 50 mcg I.V. was administered by Maris Matos RN; for sedation; 12:41:09 Zero performed for pressure channel P1 12:41:23 Versed 0.5 mg I.V. was administered by Maris Matos RN; for sedation; 12:41:30 Fentanyl 25 mcg I.V. was administered by Maris Matos RN; for sedation; 12:43:08 Versed 0.5 mg I.V. was administered by Maris Matos RN; for sedation; 12:43:19 Fentanyl 25 mcg I.V. was administered by Maris Matos RN; for sedation; 12:45:01 Procedure started. 12:45:04 Local anesthetic to right femoral artery with Lidocaine 2% by Kin Oshea MD.INITIAL ACCESS ONLY 12:46:40 A 5 Fr sheath was inserted into the Right Femoral artery 12:47:06 A Diagnostic Infinity 5Fr JL 4.0 catheter was advanced over the wire and used for Coronary Angiography. 12:48:34 LCA angiography performed. 12:49:53 Catheter removed. 12:49:58 A Diagnostic Infinity 5Fr 3DRC catheter was advanced over the wire and used for Coronary Angiography. 12:50:52 RCA angiography performed. 12:51:58 Catheter removed. 12:53:18 A Diagnostic Infinity 5Fr AR 1 MOD catheter was advanced over the wire and used for Coronary Angiography. 12:54:42 RCA angiography performed. 12:54:44 Catheter removed. 12:55:32 Ascenz BasixCompak Inflation Kit opened to sterile field. 12:55:33 Muir BMW [place] 2 J-tip 300cm 0.014 guide wir opened to sterile field. 12:55:33 Cordis 6FR XBLAD 3.5 guide catheter opened to sterile field. 12:55:34 High Pressure Extension Tubing (Ozzy) opened to sterile field. 12:57:34 Terumo 6Fr Hooper Sheath opened to sterile field. 12:57:59 ACC PCI Site: Ramus has 90% stenosis. 12:58:01 ACC Pre-intervention YANDY Flow is 3. 12:58:09 Sheath upsized to a 6 Fr Short. 12:58:17 6 Fr XBLAD 3.5 guide catheter was inserted over the wire 12:59:06 Heparin Bolus 9000 units I.V. was administered by Maris Matos RN; for anticoagulation; dose verified with dr oshea 12:59:38 Nitroglycerin IC/IA 100 mcg I.C. was administered by Kin Oshea MD; for vasodilation; 13:02:31 BMW wire advanced. 13:03:19 Wire advanced across lesion. 13:06:59 Inflation Number: 1 A Biovest Internationaltronic Integrity 2.5 X 22 stent was prepped and advanced across the Ramus. The stent was deployed at 16 MAURO for 0:10 (min:sec). 13:07:29 Inflation number: 2 The stent balloon was then re-inflated across the Ramus to 16 MAURO for 0:10 (min:sec). 13:10:15 ACC Post-intervention YANDY Flow is 3. 13:10:16 Stent catheter was removed intact over wire. 13:10:16 Wire removed. 13:10:17 Guide catheter removed. 13:10:23 Cordis 6Fr Exoseal opened to sterile field. 13:10:49 Sheath removed intact; hemostasis achieved with Exoseal to the Right Femoral artery. 13:10:51 Procedure ended.(Physican Out) 13:11:05 Fluoroscopy time 05.50 minutes. 13:11:16 Fluoroscopy dose: 653.67 mGy 13:11:16 Flurop Dose total: 653.67 13:11:33 Contrast amount:Isovue 300 161ml. 13:11:35 Sharps counted by scrub and verified by R.N. 13:11:37 Insertion/operative site no bleeding no hematoma. 13:11:39 Post-op/insertion site Right Femoral artery dressed using a 4 x 4 and Tegaderm. 13:11:40 Post Procedure Pulses reassessed and unchanged 13:11:52 Post-procedure physical assessment completed. ASA score P 2 - A patient with mild systemic disease as per Kin Oshea MD. 13:11:55 Post procedure rhythm: unchanged. 13:11:58 Estimated blood loss: 10 ml 13:12:00 Post procedure instruction explained to patient.Patient verbalizes understanding. 13:12:01 Patient needs reinforcement of post procedure teaching. 13:12:06 Procedure type changed to Cath procedure, Diagnostic procedure, LHC, Coronaries only, PCI procedure, Coronary Stent Initial, Miscellaneous Procedures, Moderate Sedation up to 30 minutes 13:12:15 Procedure Complication : No complications 13:12:42 Procedure and supply charges have been captured, reviewed, submitted and are correct. 13:14:41 Plavix 600 mg P.O. was administered by Kin Oshea MD; for antiplatelet therapy; 13:19:14 Vital chart was stopped 13:19:16 See physician's report for complete and final results. 13:19:19 Report given to PCU. 13:19:21 Patient transfered to PCU with Bed. 13:19:23 Procedure ended. 13:19:23 Full Disclosure recording stopped 13:19:30 ACC-PCI Only Patient was given prescriptions, or instructed by Kin Oshea MD to start/continue the following medications upon discharge: Aspirin, Plavix 13:19:32 End room use (Document Last) Intervention Summary Intervention Notes Time ActionType Lesion and Equipment Action# Pressure Duration Attributes Used 13:06:[address] Place stent Ramus Medtronic 1 16 00:10 Integrity 2.5 X 22 stent 13:07:29 Reinflate Ramus Medtronic 2 16 00:10 stent Integrity balloon 2.5 X 22 stent Device Usage Item Name Manufacture Quantity Catalog Hospital Part Current Minimal L ot# / Number Charge Number Stock Stock Serial# Code [facility] 4 1 [id number] 5 x 4 Acist Hand Acist 1 67278 650268 580390 759423 5 Control [employer] Inc Acist Acist 1 87512 305141 572878 953648 5 Manifold [employer] Inc Acist Acist 1 38479 601943 808253 366909 20 Syringe Medical Systems Inc Bag Microtek 1 2001S 466424 04490 663385 5 Decanter [employer] Medline Cardinal 1 [id number] 279016 71559 700921 5 Cath Pack Health Terumo 5Fr Terumo 1 [id number] 785014 078438 089881 [address] Raimundo 1 [id number] 684868 402962 803091 30 260cm J .035 wire Diagnostic Cardinal 1 [id number] 854206 640478 766750 10 [facility] 5Fr JL 4.0 catheter Diagnostic Cardinal 1 [id number] 241960 148804 218252 9 [facility] 5Fr 3DRC catheter Diagnostic Cardinal 1 [id number] 306044 544857 133566 15 [facility] 5Fr AR 1 MOD catheter Merit Merit 1 [id number] 881705 639624 869585 15 Juesheng.com[employer] Medical Inflation Kit Muir BMW Muir 1 [id number] 724544 795187 773849 5 [place] 2 Vascular J-tip 300cm 0.014 guide wir Cordis 6FR Cardinal 1 [id number] 475372 845795 985606 10 XBLAD 3.5 Health guide catheter High Merit 1 [id number] 088101 42431 500130 10 Pressure Medical Extension Tubing (Oshea) Terumo 6Fr Terumo 1 [id number] 070532 420196 863937 40 Hooper Sheath Medtronic Medtronic 1 [id number] 701005 730397 1 0 [id number] Integrity 2.5 X 22 stent Cordis 6Fr Cardinal 1 [id number] 718041 767771 801823 10 [facility] Tidy Books Signature Audit [place] Stage Time Signature Unsigned Intra-Procedure 08/24/2016 Derek Gonzalez 1:20:08 PM RT(R) Signatures Monitor : Derek Gonzalez RT Signature : Date : Time : [facility] [address] [place] [address]
--- NOTE | ~2016-08-23 | HEMODYNAMI ---
PATIENT:QUINN ZHANG MEDICAL RECORD: [id number] : 51 LOCATION:[facility] [id number] [facility]# [id number] ADMISSION DATE: 08/23/16 Generatedon:08/25/201613:03 Patient name: QUINN ZHANG Patient #: [id number] SSN: [id number] : 1955 Date of study: 08/25/2016 Page: Of Hemodynamic Procedure Report Patient Data Patient Demographics Procedure consent was obtained First Name: QUINN Gender: Male Last Name: VICENTE : 1955 Middle Initial: R Age: 60 year(s) Patient #: [id number] Race: SSN: [id number] Additional ID: [id number] Contact details Address: [address] [place] [address] State: [place] City: [place] Zip code: [address] Past Medical History Allergies Allergen Reaction Date Comments Reported Statins 06/07/2016 Statins 07/01/2016 Admission Admission Data Admission Date: 08/23/2016 Admission Time: 13:51 Arrival Date: 08/23/2016 Arrival Time: 13:51 Admit Source: Other Insurance Payor: Private Room #: [id number] health insurance Lab Results Lab Result Date: 08/24/2016 Lab Result Time: 0:00 Biochemistry Name Units Result Min Max BUN mg/dl 18 --(---*)-- 7 18 Creatinine mg/dl 0.9 --(-*--)-- 0.6 1.3 CBC Name Units Result Min Max Hemoglobin g/dl 15.4 --(-*--)-- 13.5 17.5 Procedure Procedure Types Cath Procedure PCI Procedure Coronary Stent Initial Miscellaneous Procedures Moderate Sedation up to 15 minutes Procedure Description Procedure Date Procedure Date: 08/25/2016 Procedure Start Time: 12:42 Procedure End Time: 13:02 Procedure Staff Name Function Kin Oshea MD Performing Physician Celia Bunch RT Scrub Meg Curtis RN Nurse Derek Gonzalez RT Monitor Procedure Data Cath Procedure Fluoroscopy Diagnostic fluoroscopy Total fluoroscopy Time: 2.5 time: 2.5 min min Diagnostic fluoroscopy Total fluoroscopy dose: 299 dose: 299 mGy mGy Contrast Material Contrast Material Type Amount (ml) Isovue 300 45 Entry Location Entry Primary Successful Side Size Upsize Upsize Entry Closure Succes sful Closure Location (Fr) 1 (Fr) 2 (Fr) Remarks Device Remarks Femoral Right 6 Fr Exoseal artery Short Estimated blood loss: 10 ml Procedure Complications No complications Procedure Medications Medication Administration Route Dosage Oxygen NC 2 l/min Heparin Flush Bag added to field 2 bags (1000units/500ml NS) 0.9% NaCl I.V. 100 ml/hr Lidocaine 2% added to field 20 Versed I.V. 1 mg Fentanyl I.V. 50 mcg Versed I.V. 1 mg Fentanyl I.V. 50 mcg Heparin Bolus I.V. 9000 units Fentanyl I.V. 50 mcg Hemodynamics Rest HGB: 15.4 (g/dl) Heart Rate: 74 (bpm) Snapshots Pre Cath Intra NCS Post Cath Vital Signs Time Heart Resp SPO2 etCO2 MA4fxxb NIBP (mmHg) Rhythm Pain Sedation Rate (ipm) (%) (mmHg) (mmHg) Status Level (bpm) 12:18:09 73 15 96 0 0 148/83(120) NSR 0 (11) 10(A) , No pain 12:22:29 71 21 98 0 0 148/80(120) NSR 0 (11) 10(A) , No pain 12:26:47 70 20 98 0 0 145/81(121) NSR 0 (11) 10(A) , No pain 12:31:05 71 18 97 0 0 141/80(111) NSR 0 (11) 10(A) , No pain 12:35:23 72 18 97 0 0 142/81(116) NSR 0 (11) 10(A) , No pain 12:39:42 71 16 97 0 0 143/80(114) NSR 0 (11) 10(A) , No pain 12:43:57 76 15 94 0 0 148/90(119) NSR 0 (11) 10(A) , No pain 12:48:13 77 15 96 0 0 156/93(125) NSR 0 (11) 9(A) , No pain 12:52:27 79 15 95 0 0 140/79(110) NSR 0 (11) 9(A) , No pain 12:56:41 81 16 95 0 0 153/89(118) NSR 0 (11) 9(A) , No pain 12:59:46 77 15 96 0 0 143/80(118) NSR 0 (11) 10(A) , No pain Medications Time Medication Route Dose Verified Delivered Reason Notes Effectiveness by by 12:26:42 Oxygen NC 2 Kin Buffie used for l/min Ozzy Curtis RN procedure 12:27:01 Heparin Flush added 2 Kin Kin used for Bag to bags Ozzy Oshea MD procedure (1000units/500ml field NS) 12:27:10 0.9% NaCl I.V. 100 Kin Buffie Per physician ml/hr Ozzy Curtis RN 12:27:23 Lidocaine 2% added 20ml Kin Kin for local to vial Ozzy Oshea MD anesthetic field 12:41:06 Versed I.V. 1 mg Kni Buffie for sedation Ozzy Curtis RN 12:41:12 Fentanyl I.V. 50 Kin Buffie for sedation mcg Ozzy Curtis RN 12:46:16 Versed I.V. 1 mg Kin Buffie for sedation Ozzy Curtis RN 12:46:20 Fentanyl I.V. 50 Kin Buffie for sedation mcg Ozzy Curtis RN 12:48:42 Heparin Bolus I.V. 9,000 Kin Buffie for verifi ed units Ozzy Curtis RN anticoagulation with dr oshea 12:52:42 Fentanyl I.V. 50 Kin Buffie for sedation mcg Ozzy Curtis RN Procedure Log Time Note 11:50:29 Meg Curtis RN sent for patient. Start room use. 12:02:34 Informed consent obtained and on chart 12:03:05 Admit Source: Other 12:03:15 Arrival Date: 08/23/2016 1:51:00 PM 12:03:25 Insurance Payor : Private health insurance 12:04:06 Diagnostic Cath Status : Elective 12:04:45 Time tracking: Regular hours 12:04:51 Plan of Care:Hemodynamics will remain stable., Cardiac rhythm will remain stable., Comfort level will be maintained., Respiratory function will remain adequate., Patient/ family verbilizes understanding of procedure., Procedure tolerated without complication., Recovers from procedure without complications.. 12:12:31 Patient received from Med II to CCL 1 Alert and oriented. Tansferred to table in Supine position. 12:12:32 Warm blankets applied, and bal hugger turned on for patient comfort. 12:12:33 Correct patient and procedure confirmed by team. 12:12:34 ECG and BP/O2 sat monitors applied to patient. 12:17:02 Vital chart was started 12:17:03 Full Disclosure recording started 12:17:07 Rhythm: sinus rhythm 12:18:13 Baseline sample Acquired. 12:20:56 H&P Date Dictated: 08/25/2016 Within 30 days and on chart.. 12:20:57 Pre-procedure instructions explained to patient. 12:20:57 Pre-op teaching completed and patient verbalized understanding. 12:20:59 Family in waiting room. 12:21:00 Patient NPO since Midnight. 12:21:03 Is the patient allergic to Iodine/contrast media? No. 12:21:05 Is patient on blood thinner?Yes 12:21:08 ACC The patient was administered the following blood thiners within the last 24 hours: ACCPlavix 12:21:10 Patient diabetic? Yes. 12:21:12 If diabetic: On Metformin? Yes 12:21:15 If on Metformin: Last Dose? 08/21/2016 12:21:18 Previous problem with sedation/anesthesia? No ? 12:21:20 Snore? Yes 12:21:21 Sleep apnea? No 12:21:22 Deviated septum? No 12:21:22 Opens mouth fully? Yes 12:21:23 Sticks out tongue? Yes 12:21:28 Airway obstruction? Yes COPD 12:21:33 Dentures? Yes IN TIGHT 12:24:25 Pre procedure: left dorsailis pedis pulse 1+ Palpable, but thready & weak; easily obliterated 12:24:36 Patient pain scale 0/10 ?. 12:24:41 IV patent on arrival in right hand with 0.9% NaCl at KVO. 12:24:43 Lab results completed and on chart. 12:24:46 Left groin area was prepped with chlora-prep and draped in sterile fashion 12:24:47 Alarms reviewed by R. N. 12:24:47 Sharps counted by scrub and verified by R.N. 12:24:51 Use device set Femoral PCI 12:24:52 Tegaderm 4 x 4 opened to sterile field. 12:24:54 Acist Manifold opened to sterile field. 12:24:55 Acist Syringe opened to sterile field. 12:24:55 Acist Hand Control opened to sterile field. 12:24:56 Bag Decanter opened to sterile field. 12:24:56 Medline Cath Pack opened to sterile field. 12:24:56 Terumo 6Fr [place] Sheath opened to sterile field. 12:24:57 St Raimundo 260cm J .035 wire opened to sterile field. 12:24:59 Knowta BasixCompak Inflation Kit opened to sterile field. 12:25:05 Muir BMW [place] 2 J-tip 300cm 0.014 guide wir opened to sterile field. 12:26:42 Oxygen 2 l/min NC was administered by Meg Curtis RN; used for procedure; 12:27:01 Heparin Flush Bag (1000units/500ml NS) 2 bags added to field was administered by Kin Oshea MD; used for procedure; 12:27:10 0.9% NaCl 100 ml/hr I.V. was administered by Meg Curtis RN; Per physician; 12:27:23 Lidocaine 2% 20ml vial added to field was administered by Kin Oshea MD; for local anesthetic; 12:36:29 --------ALL STOP TIME OUT------ 12:36:30 Final Timeout: patient, procedure, and site verified with staff and physician. All members of the team are in agreement. 12:36:32 Left groin site verified by team. 12:36:38 Physical assessment completed. ASA score P 2 - A patient with mild systemic disease as per Kin Oshea MD. 12:36:46 Sedation plan: IV Moderate Sedation Versed, Fentanyl 12:38:53 Medtronic Launcher 6Fr AR 1.0 guide catheter opened to sterile field. 12:40:00 ACC PCI Site: mRCA has 80% stenosis. 12:40:03 ACC Pre-intervention YANDY Flow is 3. 12:41:06 Versed 1 mg I.V. was administered by Meg Curtis RN; for sedation; 12:41:12 Fentanyl 50 mcg I.V. was administered by Meg Curtis RN; for sedation; 12:42:25 Procedure started. 12:42:30 Local anesthetic to left femerol artery with Lidocaine 2% by Kin Oshea MD.INITIAL ACCESS ONLY 12:44:56 High Pressure Extension Tubing (Ozzy) opened to sterile field. 12:45:36 A 6 Fr Short sheath was inserted into the Right Femoral artery 12:45:59 6 Fr AR 1 guide catheter was inserted over the wire 12:46:16 Versed 1 mg I.V. was administered by Meg Curtis RN; for sedation; 12:46:20 Fentanyl 50 mcg I.V. was administered by Meg Curtis RN; for sedation; 12:48:41 BMW wire advanced. 12:48:42 Heparin Bolus 9,000 units I.V. was administered by Meg Curtis RN; for anticoagulation; verified with dr oshea 12:51:27 Wire advanced across lesion. 12:52:42 Fentanyl 50 mcg I.V. was administered by Meg Curtis RN; for sedation; 12:53:44 Inflation Number: 1 A Ensightentronic Integrity 3.5 X 26 stent was prepped and advanced across the Mid RCA. The stent was deployed at 13 MAURO for 0:10 (min:sec). 12:54:50 ACC Post-intervention YANDY Flow is 3. 12:54:52 Stent catheter was removed intact over wire. 12:54:52 Wire removed. 12:54:53 Guide catheter removed. 12:55:11 Cordis 6Fr Exoseal opened to sterile field. 12:55:45 Sheath removed intact; hemostasis achieved with Exoseal to the Right Femoral artery. 12:55:47 Procedure ended.(Physican Out) 12:56:21 Fluoroscopy time 02.50 minutes. 12:56:25 Fluoroscopy dose: 299 mGy 12:56:25 Flurop Dose total: 299 12:56:29 Contrast amount:Isovue 300 45ml. 12:56:31 Sharps counted by scrub and verified by R.N. 12:56:33 Insertion/operative site no bleeding no hematoma. 12:56:37 Post-op/insertion site Left Femoral artery dressed using a 4 x 4 and Tegaderm. 12:56:39 Post Procedure Pulses reassessed and unchanged 12:56:46 Post-procedure physical assessment completed. ASA score P 2 - A patient with mild systemic disease as per Kin Oshea MD. 12:56:48 Post procedure rhythm: unchanged. 12:56:51 Estimated blood loss: 10 ml 12:56:52 Post procedure instruction explained to patient.Patient verbalizes understanding. 12:56:53 Patient needs reinforcement of post procedure teaching. 12:57:04 Procedure type changed to Cath procedure, PCI procedure, Coronary Stent Initial, Miscellaneous Procedures, Moderate Sedation up to 15 minutes 12:57:07 Procedure Complication : No complications 12:57:29 Procedure and supply charges have been captured, reviewed, submitted and are correct. 13:02:40 Vital chart was stopped 13:02:41 See physician's report for complete and final results. 13:02:42 Report given to PCU. 13:02:45 Patient transfered to PCU with Bed. 13:02:47 Procedure ended. 13:02:47 Full Disclosure recording stopped 13:02:58 ACC-PCI Only Patient was given prescriptions, or instructed by Kin Oshea MD to start/continue the following medications upon discharge: Aspirin, Plavix 13:03:00 End room use (Document Last) Intervention Summary Intervention Notes Time ActionType Lesion and Equipment Action# Pressure Duration Attributes Used 12:53:44 Place stent Mid RCA Medtronic 1 13 00:10 Integrity 3.5 X 26 stent Device Usage Item Name Manufacture Quantity Catalog Hospital Part Current Minimal L ot# / Number Charge Number Stock Stock Serial# Code Tegaderm 4 3M 1 [id number] 230270 [id number] [id number] 5 x 4 Acist Acist 1 27678 331042 430766 526500 5 Manifold Medical Systems Inc Acist Acist 1 67259 805952 895061 645522 20 Syringe Medical Systems Inc Acist Hand Acist 1 69967 165862 314814 273855 5 Control Medical Systems Inc Bag Microtek 1 2002S 479368 52545 039296 5 DecOpti-Source. Medline Cardinal 1 [id number] 251493 41924 550542 5 KeyEffx Terumo 6Fr Terumo 1 [id number] 091358 891684 868655 [address] Raimundo 1 512729 344605 998695 448810 30 260cm J .035 wire Merit Merit 1 [id number] 555873 859577 519452 15 BasixCompak Medical Inflation Kit Muir BMW Muir 1 [id number] 790666 210239 705219 5 [place]elly[place]ford 2 Vascular J-tip 300cm 0.014 guide wir Medtronic Medtronic 1 [id number] 641836 94938 308325 1 Launcher 6Fr AR 1.0 guide catheter High Merit 1 [id number] 560589 87697 586674 10 Pressure Medical Extension Tubing (Oshea) Medtronic Medtronic 1 [id number] 154100 751036 883845 1 0 [id number] Integrity 3.5 X 26 stent Cordis 6Fr Cardinal 1 EX600 982553 911058 691063 10 [facility] GoodThreads Signature Audit Husser Stage Time Signature Unsigned Intra-Procedure 08/25/2016 Derek Gonzalez 1:03:18 PM RT(R) Signatures Monitor : Derek Gonzalez RT Signature : Date : Time : [id number] [place] [address]
[~2016-08-23 10:44] MED LIST changes: +AFRIN NASAL SPR15 ML NASAL; +ALDACTONE25 MG PO; +K-TAB10 MEQ PO; +NOVOLOG100 U/M1; +NOVOLOG100 U/M1 SC
[2016-08-23 11:17] VITALS: BP 106/55; BMI 28.6
[2016-08-23 12:08] LABS: CALC OSMOLALITY 281 mosm/kg (275-300); CALCIUM 9.7 mg/dL (8.5-10.1); CARBON DIOXIDE 25.8 mmol/L (21.0-32.0); CHLORIDE - SERUM 106 mmol/L (98-107); CREATININE - SERUM 0.9 mg/dL (0.6-1.3); GLUCOSE 141 mg/dL (74-106); POTASSIUM - SERUM 5.6 mmol/L (3.5-5.1); SODIUM 139 mmol/L (136-145); UREA NITROGEN 18 mg/dL (7-18); eGFR NON AFRICAN AMERICAN > 90 mL/min (90-120)
[2016-08-23 12:27] LABS: INR 1.98 (0.85-1.17); PROTIME 22.6 SECONDS (11.6-15.0)
[2016-08-23 12:35] LABS: BASOPHILS 0.8 % (0.0-2.0); EOSINOPHILS 3.5 % (0-7); HEMOGLOBIN 15.4 g/dL (13.5-17.5); IMMATURE GRANULOCYTES 0.3 % (0-5); LYMPHOCYTES 14.3 % (15-50); MCH 30.3 pg (26.0-34.0); MCHC 33.5 g/dL (31.0-37.0); MCV 90.4 fL (80.0-100.0); MEAN PLATELET VOLUME 10.2 fL (7.4-10.4); MONOCYTES 8.5 % (2-11); NEUTROPHILS 72.6 % (40-80); PLATELET COUNT 129 10x3/uL (130-400); RBC 5.09 10x6/uL (4.20-6.10); RDW 17.7 % (11.5-14.5)
--- NOTE | 2016-08-23 13:36 | NUR ---
report called to sidney reinoso on med ii. transferred via wheelchair to 2121 with family at side.
--- NOTE | 2016-08-23 13:36 | NUR ---
patient admitted per dr. oshea. inr too high, admitting to 2121 and will treat with 5mg vitamin k iv overnight and cath in am.
[2016-08-23] MEDS ORDERED: DILATRATE-SR40 MG PO (14:19)
[2016-08-23] MEDS ORDERED: LEVEMIR FLEXTOUCH 10 SQ (14:20)
[2016-08-23 15:55] VITALS: BP 108/55
[2016-08-23 16:09] VITALS: BP 106/55; BMI 28.6
[2016-08-23 20:00] VITALS: BP 108/41
--- NOTE | 2016-08-23 21:32 | NUR ---
RESTING ON LEFT SIDE, RESPERATIONS EVEN, NO S/S DISTRESS NOTED.
[2016-08-24] VITALS: BP 125/97
--- NOTE | 2016-08-24 00:26 | NUR ---
STUDENT SERVICES ADVISOR AT BEDSIDE FOR VS, NEEDS ADDRESSED. CALL LIGHT IN REACH. WILL CONT TO MONITOR.
--- NOTE | 2016-08-24 03:43 | NUR ---
UP TO BR, GAIT STEADY, DENIES NEEDS.
[2016-08-24 04:00] VITALS: BP 167/76
[2016-08-24 06:08] LABS: PROTIME 18.5 SECONDS (11.6-15.0)
[2016-08-24 06:49] LABS: INR 1.55 (0.85-1.17)
[2016-08-24 08:39] VITALS: BP 135/68
[2016-08-24 12:03] VITALS: BP 137/73
--- NOTE | 2016-08-24 12:15 | NUR ---
ALERT AND ORIENTED X4. PRE-OP FOR PHOTOGRAMMETRIC ENGINEER COMPLETE. UNABLE TO SCAN PRE-OP MEDICATIONS. MEDICATIONS GIVEN: 50mg BENADRYL IV, NS, NITRO. TAKEN TO PHOTOGRAMMETRIC ENGINEER VIA BED. CONTINUE PLAN OF CARE AND SAFETY PRECAUTIONS.
[2016-08-24 12:17] LABS: BASOPHILS 0.6 % (0.0-2.0); EOSINOPHILS 1.8 % (0-7); HEMATOCRIT 44.1 % (42.0-54.0); HEMOGLOBIN 14.5 g/dL (13.5-17.5); IMMATURE GRANULOCYTES 0.1 % (0-5); LYMPHOCYTES 16.7 % (15-50); MCH 30.2 pg (26.0-34.0); MCHC 32.9 g/dL (31.0-37.0); MCV 91.9 fL (80.0-100.0); MEAN PLATELET VOLUME 11.4 fL (7.4-10.4); MONOCYTES 7.8 % (2-11); PLATELET COUNT 131 10x3/uL (130-400); RDW 17.9 % (11.5-14.5); WBC 8.5 10x3/uL (4.8-10.8)
[2016-08-24 12:19] LABS: ANION GAP 13.2 mmol/L (8-16); CALCIUM 9.6 mg/dL (8.5-10.1); CARBON DIOXIDE 26.6 mmol/L (21.0-32.0); CREATININE - SERUM 1.1 mg/dL (0.6-1.3); POTASSIUM - SERUM 4.8 mmol/L (3.5-5.1)
[2016-08-24 13:14] VITALS: Ht 177.8 cm; Wt 93.2 kg
--- NOTE | 2016-08-24 13:44 | NUR ---
SEDATED. AROUSES TO VOICE. RETURN TO ROOM FROM MANAGER UNDERWRITING VIA BED. FAMILY AT BEDSIDE. COMPLAINS OF NAUSEA. SCANT BLEEDING AT RT GROIN SITE. PRESSURE HELD BY CECILIO JIANG FROM MANAGER UNDERWRITING. DRESSING CHANGED BY CECILIO JIANG. CONTINUE TO MONITOR. PULSE PALPABLE BILATERALLY. BP-145/79, R-16, P-78. REMAIN FLAT NEXT 4 HOURS. BED LOCKED AND LOW. CALL LIGHT IN REACH. TWO SIDERAILS UP. SINUS RHYTHM 78bpm.
--- NOTE | 2016-08-24 16:18 | NUR ---
ALERT AND ORIENTED X4. LAYING FLAT IN BED. DENIES PAIN OR SOB. DENIES NAUSEA AND VOMITING. RT GROIN DRESSING CLEAN DRY INTACT. FREE FROM BLEEDING. NO HEMATOMA. PULSES EQUAL BILATERALLY. SINUS RHTYHM 71bpm ON TELEMETRY. CONTINUE PLAN OF CARE. BED LOCKED AND LOW. CALL LIGHT IN REACH. TWO SIDERAILS UP.
[2016-08-24 16:34] VITALS: BP 101/61
--- NOTE | 2016-08-24 18:02 | NUR ---
ALERT AND ORIENTED X4. SITTING UP IN BED. RT GROIN DRESSING CLEAN DRY INTACT. TOLERATED DINNER. NO HEMATOMA. FREE FROM BLEEDING. DAUGHTER AT BEDSIDE. FAMILY EXPRESSES CONCERNS REGARDING HOME MEDICATIONS BEING RESTARTED. DENIES PAIN OR SOB. PREPARE SHIFT CHANGE REPORT. SINUS RHYTHM ON TELEMETRY. CONTINUE PLAN OF CARE AND SAFETY PRECAUTIONS.
--- NOTE | 2016-08-24 19:15 | NUR ---
INITIAL ROUNDS MADE. PT SITTING UP IN BED RESTING WELL. NO NEEDS OR C/O VOICED THIS TIME. TELE SR. WILL CONT TO MONITOR.
[2016-08-24 21:03] VITALS: BP 129/67
[2016-08-25 01:48] VITALS: BP 140/66
--- NOTE | 2016-08-25 03:55 | NUR ---
INDUSTRIAL ORGANIZATION MANAGER AT BEDSIDE FOR VS. NEEDS ADDRESSED, CALL LIGHT IN REACH. CONT TO MONITOR.
[2016-08-25 06:00] VITALS: BP 136/67
[2016-08-25 08:05] VITALS: BP 136/69
--- NOTE | 2016-08-25 10:21 | NUR ---
TELEMETRY SR BBB. HEPRIN GTT INFUSING. NPO FOR LHC. WILL CONT. PLAN OF CARE.
[2016-08-25 12:07] VITALS: BP 131/67
--- NOTE | 2016-08-25 12:08 | NUR ---
PRE-OPS GIVEN. TO EDI PROGRAMMER ANALYST BY BED.
--- NOTE | 2016-08-25 13:24 | NUR ---
BACK FROM OIL WELL PUMPER. VS WNL. LEFT GROIN STABLE WITHOUT BLEEDING OR HEMATOMA NOTED. WILL MONITOR.
[2016-08-25 16:00] VITALS: BP 145/73
--- NOTE | 2016-08-25 17:37 | NUR ---
BED REST UP. GROIN STABLE.
--- NOTE | 2016-08-25 18:08 | NUR ---
IV AND TELEMETRY DCD. DC PLANS GIVEN. UNDERSTANDING VOICED. ESCORTED TO CAR BY W/C.
--- NOTE | 2016-08-26 17:13 | NUR ---
LATE ENTRY FOR 08/26/16 1000AM. Patient Name: QUINN ZHANG Admission Status: Elective Accout number: [id number] Admission Date: 08-23-2016 : 1955 Admission Diagnosis:UNSTABLE ANGINA Attending: JAZMIN Current LOS: 2 Anticipated DC Date: 08-26-2016 Planned Disposition: Home with Home Health Primary Insurance: [employer] [facility] Discharge Planning Comments: CM SPOKE WITH PATIENT VIA PHONE TO DISCUSS DC PLAN. HE STATED HE PLANS TO DC HOME AND RESUME [facility]. CM FAXED CLINICAL INFO TO [facility] TO RESUME SERVICES. PT VOICED NO OTHER DC NEEDS. Archives Director: Crissy Merrill, RN, CM
--- NOTE | 2016-08-31 08:17 | OP ---
PATIENT NAME: QUINN ZHANG MEDICAL RECORD: [id number] :[birth year] LOCATION:D. D.2122 ADMISSION DATE:08/23/16 SURGEON: NAOMI PARIKH M.D. DATE OF OPERATION: 08/25/2016 Catheterization Report PROCEDURES PERFORMED: PTCA and stent placed to the right coronary artery. INDICATION: This 60-year-old gentleman presents with symptoms of accelerating angina. Recent cardiac catheterization revealed critical lesion in the right coronary artery. EQUIPMENT USED: A 6-Niuean JR4 guide, seem. INTERVENTION: A 6-Niuean AR1 guide, BMW guide wire, 3.5 x 26 mm Integrity stent. DESCRIPTION OF INTERVENTION: A 6-Niuean sheath was inserted in retrograde fashion in the left common femoral artery. Next, 100 units per kilogram of heparin was infused. A 6-Niuean AR1 guide was advanced and engaged in the right coronary. Injections revealed 2 sequential 80% stenosis involving the proximal right coronary. A BMW guide wire was placed in the distal vessel. A 3.5 x 26 mm Integrity stent was placed across both lesions and deployed at 13 atmospheres. Injection shows stent to be widely patent with 0% residual stenosis. There is marked improvement in distal flow. At this point, the wire and guide were removed. IMPRESSION: Successful percutaneous transluminal coronary angioplasty and stent of the right coronary artery with 0% residual stenosis. TRANSINT:[id number] Voice Confirmation ID: [id number] DOCUMENT ID: [id number] NAOMI PARIKH M.D. at 0817 CC: [id number] DICTATION DATE: 08/25/16 1303 GLOST KILN PLACER: 08/25/16 2351 DIS IN 08/25/16 [facility] [address] [place] [address]
--- NOTE | 2016-08-31 08:17 | OP ---
PATIENT NAME: QUINN ZHANG MEDICAL RECORD: [id number] :[birth year] LOCATION:D. D.2122 ADMISSION DATE:08/23/16 SURGEON: NAOMI PARIKH M.D. DATE OF OPERATION: 08/24/2016 Catheterization Report PROCEDURES PERFORMED: 1. Selective coronary angiography. 2. PTCA and stent placed to the ramus. INDICATION: A 60-year-old gentleman with history of coronary artery disease, who presents with recurrent angina. EQUIPMENT USED: Diagnostic 5-Guamanian JL4, Haseeb right. INTERVENTION: A 6-Guamanian XB LAD guide, BMW guidewire, 2.5 x 22 mm Integrity stent. TECHNIQUE: A 5-Guamanian sheath was inserted in retrograde fashion in the right common femoral artery. Next, selective coronary angiography was performed in standard 5-Guamanian JL4 and Haseeb right. CORONARY ANATOMY: 1. Left main: Left main trunk is moderate in caliber. It gives rise to the LAD and circumflex. There is no obstruction. 2. LAD: This is a moderate-caliber vessel extending to the apex. It has mild irregularities throughout its course, but nothing more than 20%. 3. Ramus: This vessel is moderate in caliber. The proximal vessel has been stented. The stent is patent. However, at the edge of the stent, there is a 90% in-stent restenosis seen. 4. Circumflex: This vessel is moderate in caliber. It has mild irregularities throughout its course, but nothing worse than 20%. 5. Right coronary artery: This vessel is moderate in caliber and dominant. The proximal vessel appears to have a 70% in-stent restenosis. At the bifurcation point, the ____ balloon before appears to be hazy as well. DESCRIPTION OF THE INTERVENTION: A 6-Guamanian sheath was placed in retrograde fashion in the right common femoral artery. Next, 100 units per kg of heparin was infused. A 6-Guamanian XB LAD guide was advanced and engaged in the left main coronary artery. Next, a BMW guidewire was placed in the distal segment of the ramus branch. A 2.5 x 22 mm Integrity stent was placed across the in-stent restenosis. The stent was then deployed at 16 atmospheres. Injection reveals stent to be widely patent with 0% residual stenosis. There is marked improvement in distal flow. At this point, the wire and guide were removed. IMPRESSION: Successful percutaneous transluminal coronary angioplasty and stent of the ramus branch with 0% residual stenosis. PLAN: I will likely bring him back and stage right coronary artery lesion tomorrow as this patient has mechanical valve, and has already has had his anticoagulation interrupted. TRANSINT:[id number] Voice Confirmation ID: [id number] DOCUMENT ID: [id number] OPERATIVE REPORT [id number] QUINN ZHANG TIMOTHY E M.D. at 0817 CC: [id number] DICTATION DATE: 08/24/16 1315 CURED MEATS SUPERVISOR: 08/24/16 1407 DIS IN 08/25/16 [id number] [place] [address]
== END 2016-08-25 19:38 | disposition home or self-care (01) | DRG 249 ==
LOC: D.CATH 10:44 → D.M2 13:51
PROVIDERS: Internal Medicine Interventional Cardiology; ADMIT Internal Medicine Cardiovascular Disease
PROC: 02703DZ Dilation of Coronary Artery, One Artery with Intraluminal Device, Percutaneous Approach (ICD-10-PCS; principal; 2016-08-24)
PROC: B2111ZZ Fluoroscopy of Multiple Coronary Arteries using Low Osmolar Contrast (ICD-10-PCS; 2016-08-24)
PROC: 02703DZ Dilation of Coronary Artery, One Artery with Intraluminal Device, Percutaneous Approach (ICD-10-PCS; 2016-08-25)
PROC: 4A023N7 Measurement of Cardiac Sampling and Pressure, Left Heart, Percutaneous Approach (ICD-10-PCS; 2016-08-25)
DX: I25.110 Atherosclerotic heart disease of native coronary artery with unstable angina pectoris (principal); T82.855A Stenosis of coronary artery stent, initial encounter; Y83.8 Other surgical procedures as the cause of abnormal reaction of the patient, or of later complication, without mention of misadventure at the time of the procedure; I10 Essential (primary) hypertension; Z79.01 Long term (current) use of anticoagulants

== ENCOUNTER → 2016-08-27 15:36 | Outpatient (CLI) | payer BC, MEDICARE ==
[2016-08-24 13:14] VITALS: BMI 28.9
[~2016-08-27 15:36] MED LIST changes: +DILATRATE-SR40 MG PO; +LEVEMIR FLEXTOUCH 10 SQ
[2016-08-27 15:58] LABS: INR 1.18 (0.85-1.17); PROTIME 14.9 SECONDS (11.6-15.0)
== END | disposition home or self-care (01) ==
LOC: D.LABREF 15:36
PROVIDERS: Family Medicine
DX: Z51.81 Encounter for therapeutic drug level monitoring (principal); Z79.01 Long term (current) use of anticoagulants; I10 Essential (primary) hypertension; I25.5 Ischemic cardiomyopathy; I50.9 Heart failure, unspecified

== ENCOUNTER → 2016-09-08 13:10 | Outpatient (CLI) | payer BC, MEDICARE ==
[2016-08-24 13:14] VITALS: BMI 28.9
[2016-09-08 13:31] LABS: BASOPHILS 0.5 % (0.0-2.0); EOSINOPHILS 1.8 % (0-7); HEMATOCRIT 45.9 % (42.0-54.0); HEMOGLOBIN 15.2 g/dL (13.5-17.5); IMMATURE GRANULOCYTES 0.1 % (0-5); LYMPHOCYTES 14.7 % (15-50); MCH 29.9 pg (26.0-34.0); MCHC 33.1 g/dL (31.0-37.0); MCV 90.4 fL (80.0-100.0); MEAN PLATELET VOLUME 10.9 fL (7.4-10.4); MONOCYTES 7.1 % (2-11); NEUTROPHILS 75.8 % (40-80); RBC 5.08 10x6/uL (4.20-6.10); WBC 8.7 10x3/uL (4.8-10.8)
[2016-09-08 13:32] LABS: PLATELET COUNT 176 10x3/uL (130-400)
== END | disposition home or self-care (01) ==
LOC: D.LABREF 13:10
PROVIDERS: Family Medicine
DX: I10 Essential (primary) hypertension (principal)

== ENCOUNTER → 2016-09-09 17:03 | Outpatient (CLI) | payer BC, MEDICARE ==
[2016-08-24 13:14] VITALS: BMI 28.9
== END | disposition home or self-care (01) ==
LOC: D.LABREF 17:03
DX: I11.0 Hypertensive heart disease with heart failure (principal); I50.9 Heart failure, unspecified

== ENCOUNTER → 2016-09-10 13:04 | Outpatient (CLI) | payer BC, MEDICARE ==
[2016-08-24 13:14] VITALS: BMI 28.9
== END | disposition home or self-care (01) ==
LOC: D.LABREF 13:04
DX: E87.5 Hyperkalemia (principal)

== ENCOUNTER 2018-02-23 10:58 | Outpatient (CLI) | payer BC, MEDICARE ==
[~2018-02-23] VITALS: Ht 175.3 cm; Wt 90.5 kg
[2018-02-23 11:46] VITALS: Ht 175.3 cm; Wt 90.5 kg
== END 2018-02-23 11:50 | disposition home or self-care (01) ==
LOC: D.OPS 10:58
DX: R79.9 Abnormal finding of blood chemistry, unspecified (principal); Z01.812 Encounter for preprocedural laboratory examination